=== PATIENT | male | born 1960 | race Caucasian/White ===

== ENCOUNTER 2016-08-16 20:03 | Emergency (ER) | payer OTHER ==
[~2016-08-16] VITALS: Ht 182.9 cm; Wt 104.5 kg
[2016-08-16 20:10] VITALS: BP 101/67; PULSE 61; RESP 18; O2SAT 97
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
[2016-08-16 22:57] LABS: BASOPHILS % (AUTO) 0.7 % (0-3); EOSINOPHILS % (AUTO) 0.5 % (0-5); MONOCYTES % (AUTO) 9.7 % (4-12); Mean Corpuscular Hemoglobin 31.5 pg (27.0-35.0); Mean Corpuscular Volume 87.8 fL (81-100); NEUTROPHILS % (AUTO) 66.3 % (40-74); Platelet Count 306 bil/L (150-400)
[2016-08-16 23:23] VITALS: BP 103/67; PULSE 93; RESP 16; O2SAT 96
[2016-08-17 04:39] VITALS: BP 120/77; PULSE 110; RESP 22; O2SAT 93
[2016-08-17] MEDS ORDERED: Albuterol HFA 60 Puff 8 Gm Inhaler INHALATION ONE (04:45)
[2016-08-17] MEDS ORDERED: LORazepam 2 mg Tablet PO ONE (09:00)
[2016-08-17] MEDS ORDERED: risperiDONE 1 mg Tablet PO ONE ×2 (09:10→13:55)
[2016-08-17 09:46] VITALS: BP 91/56; PULSE 90; RESP 18; O2SAT 96
[2016-08-17 13:59] VITALS: BP 99/60; PULSE 100; RESP 20; O2SAT 98
[2016-08-17] MEDS ORDERED: RISP2TAB21 PO (14:00)
[2016-08-17] MEDS ORDERED: LORA1TAB PO (21:58)
[2016-08-17] MEDS ORDERED: PHN100C PO (21:58)
[2016-08-17] MEDS ORDERED: OMEP20CA11 PO (21:58)
[2016-08-17] MEDS ORDERED: ATOR80TA PO (21:58)
[2016-08-17] MEDS ORDERED: BUDE10.2 INHALATION (21:58)
[2016-08-17] MEDS ORDERED: LISI-567 PO (21:58)
[2016-08-17] MEDS ORDERED: FLUO20CA25 PO (21:58)
== END 2016-08-17 18:17 | disposition home or self-care (01) ==
LOC: SED 20:03
DX: F23 Brief psychotic disorder (principal); F31.9 Bipolar disorder, unspecified; Z91.5 Personal history of self-harm
CPT/HCPCS: 36415; 80053; 80185; 84443; 85025; 99285; G0480